=== PATIENT | female | born 1965 | race Caucasian/White ===

== ENCOUNTER 2018-04-16 07:23 | Outpatient (CLI) | payer OTHER ==
[~2018-04-16 07:23] MED LIST: DESMOPRESSIN; MAXALT10 MG
== END 2018-04-16 07:44 | disposition home or self-care (01) ==
LOC: LAB 07:23
DX: M06.4 Inflammatory polyarthropathy (principal); D68.0 Von Willebrand disease; D51.8 Other vitamin B12 deficiency anemias; E03.8 Other specified hypothyroidism; E55.9 Vitamin D deficiency, unspecified; M62.838 Other muscle spasm; D50.8 Other iron deficiency anemias; I10 Essential (primary) hypertension; E78.2 Mixed hyperlipidemia; K90.89 Other intestinal malabsorption; R97.0 Elevated carcinoembryonic antigen [CEA]; R97.8 Other abnormal tumor markers; C18.9 Malignant neoplasm of colon, unspecified

== ENCOUNTER 2019-12-16 07:02 | Outpatient (CLI) | payer OTHER | END 2019-12-16 07:16 | disposition home or self-care (01) | LOC: LAB 07:02 | DX: Z00.00 Encounter for general adult medical examination without abnormal findings (principal) ==